=== PATIENT | female | born 1990 | race African-American/Black ===

== ENCOUNTER 2017-04-02 18:43 | Emergency (ER) | payer OTHER ==
[~2017-04-02 18:43] MED LIST: [UNRECOGNIZED DRUG - OTHER] VAG
[2017-04-02] MEDS ORDERED: NO MEDICATIONS (18:49)
[2017-04-02 19:02] LABS: URINE SOURCE CLEAN CATCH
[2017-04-02 19:04] LABS: URINE APPEARANCE HAZY; URINE BILIRUBIN NEG (NEG); URINE BLOOD 3+ (NEG); URINE COLOR YELLOW; URINE GLUCOSE NEG (NORM); URINE KETONE NEG (NEG); URINE LEUKOCYTE ESTERASE 3+ (NEG); URINE NITRATE NEG (NEG); URINE PH 6.5 (5-8); URINE PROTEIN TRACE (NEG); URINE SPECIFIC GRAVITY 1.015 (1.003-1.035); URINE UROBILINOGEN 0.2 MG/DL (NORM)
[2017-04-02 19:10] LABS: CULTURE INDICATED? YES; MICRO INDICATED? YES; URINE BACTERIA 1+ (NEG); URINE RBC INNUM /[HPF] (0-2)
[2017-04-02 19:11] LABS: URINE MUCUS PRESENT; URINE SQUAMOUS EPITHELIAL CELL MODERATE /[HPF]
[2017-04-02 19:12] LABS: URINE TRANSITIONAL EPI CELLS FEW /[HPF]; URINE WBC 100-200 /[HPF] (0-5)
== END 2017-04-02 19:34 | disposition home or self-care (01) ==
LOC: SED 18:43
PROVIDERS: Nurse Practitioner
DX: N30.00 Acute cystitis without hematuria (principal); F17.210 Nicotine dependence, cigarettes, uncomplicated
CPT/HCPCS: 81003; 84703; 87086; 87088; 87186; 99283